=== PATIENT | female | born 1935 | race Caucasian/White ===

== ENCOUNTER 2016-04-28 12:14 | Observation (INO) ==
--- NOTE | 2016-04-28 12:29 | Emergency Department Note ---
Disposition Clinical Impression: Dehydration, Hyperkalemia, Hyperglycemia Disposition: Admitted As Inpatient Condition: Good Referrals: Cindi Geronimo MD [Primary Care Provider] - Forms: Work/School Release, ED Satisfaction Letter Time of Disposition: 16:35 Abdominal Pain HPI - General Chief Complaint: ED Abdominal Pain Stated Complaint: abdominal pain, weakness Time Seen by Provider: 04/28/16 12:25 Source: patient Mode of arrival: EMS Limitations: no limitations Nursing Notes Reviewed: Yes Vital Signs Reviewed: Yes - History of Present Illness HPI Narrative: 6-year-old female resents be a life 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 She states she has felt bad for a little over a week. She states she saw her physician last week who harish some blood. She is not sure what the results were. She states she feels weak primarily in the morning when she gets up until late in the morning. She has had some discomfort in her lower abdomen in the suprapubic area. It radiates to her back. Decreased appetite. No vomiting. No diarrhea. No frequency or urgency. No fever. Pt Subjective Complaint: abdominal pain Onset (ago): week(s) Consistency: constant (1) Location: suprapubic Pain Severity: mild Pain Scale: 1 Quality: cannot describe Radiation: back (Low back) Migration to: no migration Improves with: nothing Worsens with: nothing Associated symptoms: Reports: other (Weakness/fatigue. Worse in the mornings.) Treatments prior to arrival: other (Saw her primary care physician last week.) - Related Data Home Medications Medication Instructions Recorded Confirmed Amlodipine [Norvasc] 5 mg PO BID 04/28/16 04/28/16 Aspirin [Lo-Dose Aspirin EC] 81 mg PO DAILY 04/28/16 04/28/16 Citalopram Hydrobromide 10 mg PO DAILY 04/28/16 04/28/16 [Citalopram HBr] Donepezil [Aricept] 10 mg PO HS 04/28/16 04/28/16 Insulin DETEMIR [Levemir] 15 unit SQ HS 04/28/16 04/28/16 Labetalol HCl 200 mg PO BID 04/28/16 04/28/16 Losartan [Cozaar] 25 mg PO DAILY 04/28/16 04/28/16 Ranitidine HCl [Zantac] 150 mg PO DAILY 04/28/16 04/28/16 Sitagliptin Phosphate [Januvia] 50 mg PO DAILY 04/28/16 04/28/16 Tizanidine HCl [Zanaflex] 2 mg PO TID 04/28/16 04/28/16 Allergies Allergy/AdvReac Type Severity Reaction Status Date / Time methyldopa Allergy See Verified 04/28/16 12:18 Comments acetaminophen [From Tylenol] AdvReac Diarrhea Verified 06/09/15 08:58 propoxyphene AdvReac Diarrhea Verified 06/09/15 08:58 sulfamethoxazole AdvReac Cramping Verified 06/09/15 08:58 [From Bactrim] of the Muscles trimethoprim [From Bactrim] AdvReac Cramping Verified 06/09/15 08:58 of the Muscles All systems ED: reviewed and negative except as stated. Constitutional: Denies: fever, chills Eyes: Denies: eye discharge ENT ED: Denies: ear pain, throat pain Cardiovascular: Denies: chest pain, palpitations Respiratory: Denies: cough, dyspnea Gastrointestinal: Reports: abdominal pain. Denies: nausea, vomiting, diarrhea Genitourinary: Denies: urgency, dysuria, frequency Musculoskeletal: Reports: back pain (Midline lower lumbar) Integumentary: Denies: rash Endocrine: Reports: fatigue Abdominal Pain PMH - Past Medical History Medical history: Reports: coronary artery disease, diabetes, GERD, hypertension , renal disease, TIA - Social History Smoking status: Never smoker Alcohol use: Reports: none Drug use: Reports: none Physical Exam - General Limitations: no limitations General appearance: alert, in no apparent distress - Head Head exam: atraumatic, normocephalic - Eye Eye exam: Present: PERRL, EOMI. Absent: scleral icterus, conjunctival injection - ENT ENT exam: normal oropharynx, mucous membranes moist, TM's normal bilaterally - Neck Neck exam: Present: normal inspection, full ROM, trachea midline. Absent: tenderness, lymphadenopathy - Chest Chest inspection: Present: normal inspection, symmetric chest wall rise - Respiratory Respiratory exam: Present: normal lung sounds bilaterally. Absent: respiratory distress, wheezes - Cardiovascular Cardiovascular exam: Present: regular rate, normal rhythm, normal heart sounds - Abdominal Exam Abdominal exam: Present: soft, tenderness, guarding. Absent: distention, rebound, organomegaly, mass Abdominal tenderness: Present: suprapubic, moderate - Extremities Exam Extremities exam: Present: normal inspection, full ROM, normal capillary refill. Absent: tenderness, calf tenderness - Neurological Exam Neurological exam: Present: alert, oriented X3. Absent: motor sensory deficit - Psychiatric Psychiatric exam: Present: normal affect, depressed - Skin Skin exam: Present: warm, dry, intact. Absent: cyanosis, diaphoresis Course - Reevaluation(s) Reevaluation #1: Discuss test results with the patient and family. Discussed options as far as observation admission versus outpatient treatment. I told them I was concerned about her elevated potassium and weakness, and her legs giving out on her. I felt that it would be prudent to observe her on a monitor and hydrate her and recheck her potassium. They are agreeable. Time: 16:00 Reevaluation #2: Discussed with Dr. Lindsey. He is agreeable with the admission. Time: 16:20 Vital Signs Temperature 99.7 F H 04/28/16 12:19 Pulse Rate 54 04/28/16 12:19 Respiratory Rate 20 04/28/16 12:19 O2 Sat by Pulse Oximetry 100 04/28/16 12:19 Temperature 98.1 F 04/28/16 14:18 Pulse Rate 53 04/28/16 16:00 Respiratory Rate 18 04/28/16 16:00 Blood Pressure 164/77 04/28/16 16:00 O2 Sat by Pulse Oximetry 99 04/28/16 16:00 Oxygen Delivery Oxygen Delivery Room Air Abdominal Pain - MDM Narrative Medical decision making narrative: Differential includes but is not limited to hypothyroidism, hyperglycemia, urinary tract infection, influenza, diverticulitis, appendicitis. On review of old records her BUN and creatinine are running somewhat higher than her baseline. She certainly appears to have some baseline renal insufficiency, I cannot rule out a component of prerenal azotemia. She has had associated mild hyperkalemia. This may explain her generalized weakness and/or fatigue. She states her blood sugars have been running in the 180-200 range. She states she has been drinking a lot of fluids. I think she would benefit from hydration, monitoring and recheck in her potassium, monitoring her blood sugars under better control. The etiology of her abdominal discomfort is not clear at this point in time. Made for further workup. I discussed the case with the hospitalist, Dr. Lindsey, and he accepts the patient for admission. - Medical Records Medical records reviewed: Yes I reviewed the patient's medical records. - Lab Data Lab results reviewed: Yes I reviewed the patient's lab results. Result diagrams: 04/28/16 12:52 04/28/16 12:52 Lab Results 04/28/16 04/28/16 04/28/16 Range/Units 12:52 12:52 12:52 WBC 3.9 L (4.3-11.1) K/mcL RBC 4.28 (3.82-4.97) M/mcL Hgb 11.5 (11.5-15.4) g/dL Hct 33.8 L (35.3-44.9) % MCV 79.0 L (83.0-100.0) fL MCH 26.9 L (28.0-33.3) pg MCHC 34.0 (31.6-35.5) g/dL RDW 13.1 (11.5-14.5) % Plt Count 184 (140-400) K/mcL MPV 10.4 (9.4-12.4) fL Immature Gran % 0.3 (0-4) % Seg Neutrophils % 57.3 % Lymphocytes % 27.0 % Monocytes % 10.0 % Eosinophils % 4.6 % Basophils % 0.8 % Neutrophils # 2.2 (1.6-8.9) K/mcL Lymphocytes # 1.1 (0.6-4.6) K/mcL Monocytes # 0.4 (0.0-1.3) K/mcL Eosinophils # 0.2 (0.0-0.6) K/mcL Basophils # 0.0 (0.0-0.2) K/mcL VBG Lactic Acid (0.5-2.2) mmol/L Sodium 139 (136-145) mEq/L Potassium 5.4 H (3.5-4.5) mEq/L Chloride 111 H (98-109) mEq/L Carbon Dioxide 17 L (19-29) mEq/L BUN 37 H (7-20) mg/dL Creatinine 2.02 H (0.57-1.11) mg/dL Est GFR ( Amer) 29 L (> 60) Est GFR (Non-Af Amer) 24 L (> 60) BUN/Creatinine Ratio 18 (6-26) Glucose 218 H (70-99) mg/dL Calculated Osmolality 303 H (280-300) Calcium 9.7 (8.6-10.8) mg/dL Total Bilirubin 0.4 (0.2-1.2) mg/dL AST 14 (5-34) Units/L ALT 10 (0-55) Units/L Alkaline Phosphatase 64 (38-126) Units/L Troponin I 0.00 (0-0.03) ng/mL Serum Total Protein 6.8 (6.0-8.3) g/dL Albumin 3.7 (3.5-5.0) g/dL Globulin 3.1 (2.4-3.5) g/dL Albumin/Globulin Ratio 1.2 (1.1-2.2) Lipase 84 H (8-78) Units/L Beta-Hydroxybutyric Acd (0.02-0.27) mmol/L TSH (0.350-4.840) mcIU/mL Urine Color (Yellow) Urine Clarity (Clear) Urine pH (5.0-8.0) pH Units Ur Specific [place] (1.010-1.025) Urine Protein (Neg-Trace) mg/dL Urine Glucose (UA) (Normal) mg/dL Urine Ketones (Negative) mg/dL Urine Blood (Negative) Urine Nitrite (Negative) Urine Bilirubin (Negative) Urine Urobilinogen (Normal) mg/dL Ur Leukocyte Esterase (Negative) Urine Microscopic WBC (0-3) per hpf Ur Squamous Epith Cells (None-Few) per lpf Ur Culture Indicated? (NO) 04/28/16 04/28/16 04/28/16 Range/Units 12:52 12:52 13:03 WBC (4.3-11.1) K/mcL RBC (3.82-4.97) M/mcL Hgb (11.5-15.4) g/dL Hct (35.3-44.9) % MCV (83.0-100.0) fL MCH (28.0-33.3) pg MCHC (31.6-35.5) g/dL RDW (11.5-14.5) % Plt Count (140-400) K/mcL MPV (9.4-12.4) fL Immature Gran % (0-4) % Seg Neutrophils % % Lymphocytes % % Monocytes % % Eosinophils % % Basophils % % Neutrophils # (1.6-8.9) K/mcL Lymphocytes # (0.6-4.6) K/mcL Monocytes # (0.0-1.3) K/mcL Eosinophils # (0.0-0.6) K/mcL Basophils # (0.0-0.2) K/mcL VBG Lactic Acid (0.5-2.2) mmol/L Sodium (136-145) mEq/L Potassium (3.5-4.5) mEq/L Chloride (98-109) mEq/L Carbon Dioxide (19-29) mEq/L BUN (7-20) mg/dL Creatinine (0.57-1.11) mg/dL Est GFR ( Amer) (> 60) Est GFR (Non-Af Amer) (> 60) BUN/Creatinine Ratio (6-26) Glucose (70-99) mg/dL Calculated Osmolality (280-300) Calcium (8.6-10.8) mg/dL Total Bilirubin (0.2-1.2) mg/dL AST (5-34) Units/L ALT (0-55) Units/L Alkaline Phosphatase (38-126) Units/L Troponin I (0-0.03) ng/mL Serum Total Protein (6.0-8.3) g/dL Albumin (3.5-5.0) g/dL Globulin (2.4-3.5) g/dL Albumin/Globulin Ratio (1.1-2.2) Lipase (8-78) Units/L Beta-Hydroxybutyric Acd 0.29 H (0.02-0.27) mmol/L TSH 0.646 (0.350-4.840) mcIU/mL Urine Color Yellow (Yellow) Urine Clarity Clear (Clear) Urine pH 6.5 (5.0-8.0) pH Units Ur Specific [place] 1.015 (1.010-1.025) Urine Protein 100 H (Neg-Trace) mg/dL Urine Glucose (UA) 250 H (Normal) mg/dL Urine Ketones Negative (Negative) mg/dL Urine Blood Trace-lysed H (Negative) Urine Nitrite Negative (Negative) Urine Bilirubin Negative (Negative) Urine Urobilinogen Normal (Normal) mg/dL Ur Leukocyte Esterase Negative (Negative) Urine Microscopic WBC 0-3 (0-3) per hpf Ur Squamous Epith Cells Few (None-Few) per lpf Ur Culture Indicated? NO (NO) 04/28/16 Range/Units 14:25 WBC (4.3-11.1) K/mcL RBC (3.82-4.97) M/mcL Hgb (11.5-15.4) g/dL Hct (35.3-44.9) % MCV (83.0-100.0) fL MCH (28.0-33.3) pg MCHC (31.6-35.5) g/dL RDW (11.5-14.5) % Plt Count (140-400) K/mcL MPV (9.4-12.4) fL Immature Gran % (0-4) % Seg Neutrophils % % Lymphocytes % % Monocytes % % Eosinophils % % Basophils % % Neutrophils # (1.6-8.9) K/mcL Lymphocytes # (0.6-4.6) K/mcL Monocytes # (0.0-1.3) K/mcL Eosinophils # (0.0-0.6) K/mcL Basophils # (0.0-0.2) K/mcL VBG Lactic Acid 2.0 (0.5-2.2) mmol/L Sodium (136-145) mEq/L Potassium (3.5-4.5) mEq/L Chloride (98-109) mEq/L Carbon Dioxide (19-29) mEq/L BUN (7-20) mg/dL Creatinine (0.57-1.11) mg/dL Est GFR ( Amer) (> 60) Est GFR (Non-Af Amer) (> 60) BUN/Creatinine Ratio (6-26) Glucose (70-99) mg/dL Calculated Osmolality (280-300) Calcium (8.6-10.8) mg/dL Total Bilirubin (0.2-1.2) mg/dL AST (5-34) Units/L ALT (0-55) Units/L Alkaline Phosphatase (38-126) Units/L Troponin I (0-0.03) ng/mL Serum Total Protein (6.0-8.3) g/dL Albumin (3.5-5.0) g/dL Globulin (2.4-3.5) g/dL Albumin/Globulin Ratio (1.1-2.2) Lipase (8-78) Units/L Beta-Hydroxybutyric Acd (0.02-0.27) mmol/L TSH (0.350-4.840) mcIU/mL Urine Color (Yellow) Urine Clarity (Clear) Urine pH (5.0-8.0) pH Units Ur Specific [place] (1.010-1.025) Urine Protein (Neg-Trace) mg/dL Urine Glucose (UA) (Normal) mg/dL Urine Ketones (Negative) mg/dL Urine Blood (Negative) Urine Nitrite (Negative) Urine Bilirubin (Negative) Urine Urobilinogen (Normal) mg/dL Ur Leukocyte Esterase (Negative) Urine Microscopic WBC (0-3) per hpf Ur Squamous Epith Cells (None-Few) per lpf Ur Culture Indicated? (NO) - Radiology Data Radiology results reviewed: Yes I reviewed the patient's radiology results. ITS Impressions Abdomen/Pelvis CT 04/28/16 12:26 IMPRESSION: Limited noncontrast study showing no acute abnormality. D/ / Quyen Paredes Cha, MD / Quyen Paredes Cha, MD Interpreting Provider: Quyen Paredes Cha, MD Chest X-Ray 04/28/16 12:26 IMPRESSION: No acute process. D/ / Jigar Harry MD / Jigar Harry MD Interpreting Provider: Jigar Harry MD - EKG Data EKG attestation: Yes I reviewed and interpreted this EKG. EKG results narrative: Sinus bradycardia rate of 46, no acute ST-T wave changes. Rhythm shows sinus bradycardia with a rate of 46, DE interval 161 ms, QRS 77 ms with no other ectopy as interpreted by me.
[2016-04-28 13:02] LABS: Basophils % 0.8 %; Eosinophils # 0.2 K/mcL (0.0-0.6); Eosinophils % 4.6 %; Hematocrit 33.8 % (35.3-44.9); Hemoglobin 11.5 g/dL (11.5-15.4); Immature Granulocytes % 0.3 % (0-4); Lymphocytes # 1.1 K/mcL (0.6-4.6); Mean Corpuscular Hemoglobin 26.9 pg (28.0-33.3); Mean Platelet Volume 10.4 fL (9.4-12.4); Monocytes # 0.4 K/mcL (0.0-1.3); Neutrophils # 2.2 K/mcL (1.6-8.9); Platelet Count 184 K/mcL (140-400); Red Blood Count 4.28 M/mcL (3.82-4.97); Red Cell Distribution Width 13.1 % (11.5-14.5); Segmented Neutrophils % 57.3 %
[2016-04-28 13:07] LABS: Bilirubin,Urine Negative (Negative); Blood,Urine Trace-lysed (Negative); Clarity,Urine Clear (Clear); Color,Urine Yellow (Yellow); Glucose,Urine (UA) 250 mg/dL (Normal); Ketones,Urine Negative (Negative); Leukocyte Esterase,Urine Negative (Negative); Nitrite,Urine Negative (Negative); PH,Urine 6.5 pH Units (5.0-8.0); Protein,Urine 100 mg/dL (Neg-Trace); Specific Gravity,Urine 1.015 (1.010-1.025); Urobilinogen,Urine Normal (Normal)
[2016-04-28 13:23] LABS: Albumin 3.7 g/dL (3.5-5.0); Albumin/Globulin Ratio 1.2 (1.1-2.2); Bilirubin,Total 0.4 mg/dL (0.2-1.2); Calcium 9.7 mg/dL (8.6-10.8); Globulin 3.1 g/dL (2.4-3.5); Potassium 5.4 mEq/L (3.5-4.5); Total Protein 6.8 g/dL (6.0-8.3)
[2016-04-28 13:53] LABS: Squamous Epithelial Cell,Urine Few per lpf (None-Few); WBC,Urine 0-3 per hpf (0-3)
[2016-04-28] MEDS ORDERED: 0.9 % Sodium Chloride 1,000 ML IVC ONE (13:58)
[2016-04-28] MEDS ORDERED: Ondansetron 4 MG/2 ML VIAL IVP ONE (16:57)
[2016-04-28] MEDS ORDERED: *HR* Morphine 2 MG/ML SYRINGE IVP ONE (16:57)
[2016-04-28] MEDS ORDERED: Naloxone 0.4 MG/ML INJ IVP PRN (17:54)
[2016-04-28] MEDS ORDERED: NON-FORMULARY MEDICATION 1 EACH EACH (Insulin Detemir 15 UNIT) SQ SCH (21:00)
[2016-04-28] MEDS ORDERED: Insulin DETEMIR 100 UNIT/ML per UNIT SQ ONE (21:00)
[2016-04-28] MEDS: 0.9 % Sodium Chloride 1,000 ML IVC SCH (23:02)
[2016-04-28] MEDS: *HR* HYDROcodone/Acet 5/325 mg TABLET PO PRN (23:12)
[2016-04-28] MEDS: MOM Conc 10 ML UD.LIQ PO PRN (23:13)
[2016-04-29] MEDS: Ondansetron 4 MG/2 ML VIAL IVP SCH ×5 (00:32→21:48)
[2016-04-29] MEDS: 0.9 % Sodium Chloride 1,000 ML IVC SCH (05:08)
[2016-04-29 06:36] LABS: INR 1.1; Prothrombin Time 12.2 Seconds (9.4-12.1)
[2016-04-29 06:41] LABS: Calcium 8.6 mg/dL (8.6-10.8); Potassium 4.9 mEq/L (3.5-4.5)
[2016-04-29] MEDS ORDERED: NON-FORMULARY MEDICATION 1 EACH EACH (Ranitidine Hcl [Zantac] 150 MG) PO SCH (09:00)
[2016-04-29] MEDS ORDERED: *HR* SitaGLIPtin 25 MG TABLET PO SCH (09:00)
[2016-04-29] MEDS: Aspirin Enteric Coated 81 MG Tablet PO SCH (09:08)
[2016-04-29] MEDS: Famotidine 20 MG TABLET PO SCH (09:08)
[2016-04-29] MEDS: MOM Conc 10 ML UD.LIQ PO PRN (13:41)
--- NOTE | 2016-04-29 15:36 | Internal Med History&Physical ---
Date of Encounter: 04/29/16 Time of Encounter: 14:35 Assessment and Plan (1) Syncope Current visit: Yes Status: Acute Suspect cardiogenic rather than neurogenic etiology. She will have echocardiogram and carotid Doppler studies done. Further workup will be ordered as needed. Qualifiers: Syncope type: unspecified Qualified Code(s): R55 - Syncope and collapse (2) Microcytosis Current visit: Yes Status: Acute Iron studies done 01/20/2016 were unremarkable. (3) DM type 2 (diabetes mellitus, type 2) Current visit: Yes Status: Chronic Hemoglobin A1c was 8.6% on 04/06/2016. She does not use Levemir although it is listed on her home medications. She does use Januvia. Will do Accu-Cheks with SSI. 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 We will do room air oximetry before discharge. (5) CKD (chronic kidney disease) stage 4, GFR 15-29 ml/min Current visit: Yes Status: Acute We will hold Cozaar and give IV fluids and monitor renal indices. (6) Elevated antinuclear antibody (CHLOE) level Current visit: Yes Status: Acute Her CHLOE screen was positive at a 1:640 dilution on 02/21/2016. Will order additional workup for SLE Internal Medicine - H&P: HPI Chief complaint: Syncope, weight loss, dyspnea Admitted From: Home Plans for Post Hospital Care: Home History of present illness: Ms. Middleton is a 81 year old female who came to the emergency room after experiencing a syncopal episode at home. She was standing at the sink and suddenly became unable to bear weight. Her daughter was standing beside her and was able to hold her until a chair could be brought. She was placed in the chair but had markedly decreased body tone, decreased LOC, and slurred speech. Her daughter felt her heart was beating rapid and irregular. After several minutes she improved and was brought to emergency room. She was evaluated and admitted to [facility] for ongoing care needs. She has not had previous syncopal episode but has had numerous episodes of near syncope over the past few weeks. She describes these as sensation of feeling weak and occasional true vertigo. She denies chest pain or sensation of palpitations. She has had headache almost daily for the last 6 weeks. Headaches last approximately 20 minutes and sometimes recur in the course of the day. She has seen Dr. Davis at [facility] and CT and MRI studies of the head have shown no significant pathology. The specific diagnosis of the etiology of the headaches has been made. The patient was concerned she might have dementia and was started on Aricept although no definitive diagnosis was made. She denies large distribution strokes or seizures. Past Med Surg Social Fam HX - Past Medical History Medical history: coronary artery disease, diabetes, GERD, hypertension, renal disease, TIA Psychiatric history: anxiety - Past Surgical History Surgical History: hysterectomy, knee replacement - Social History Smoking Status: Never smoker Smokeless Tobacco Status: No Alcohol use: none Drug use: none - Family History Mother Living Status: Age at : 80 Cause of : PA Hx Family Cardiac Disorders: Yes Hx Family Cancer: Yes Hx Family Endocrine Disorder: Yes (diabetes) Internal Medicine - H&P: Meds Amlodipine [Norvasc] 5 mg PO BID 04/28/16 [History] Aspirin [Lo-Dose Aspirin EC] 81 mg PO DAILY 04/28/16 [History] Citalopram Hydrobromide [Citalopram HBr] 10 mg PO DAILY 04/28/16 [History] Donepezil [Aricept] 10 mg PO HS 04/28/16 [History] Insulin DETEMIR [Levemir] 15 unit SQ HS 04/28/16 [History] Labetalol HCl 200 mg PO BID 04/28/16 [History] Losartan [Cozaar] 25 mg PO DAILY 04/28/16 [History] Ranitidine HCl [Zantac] 150 mg PO DAILY 04/28/16 [History] Sitagliptin Phosphate [Januvia] 50 mg PO DAILY 04/28/16 [History] Tizanidine HCl [Zanaflex] 2 mg PO TID 04/28/16 [History] Allergies methyldopa Allergy (Verified 04/28/16 12:18) See Comments acetaminophen [From Tylenol] Adverse Reaction (Verified 06/09/15 08:58) Diarrhea propoxyphene Adverse Reaction (Verified 06/09/15 08:58) Diarrhea sulfamethoxazole [From Bactrim] Adverse Reaction (Verified 06/09/15 08:58) Cramping of the Muscles trimethoprim [From Bactrim] Adverse Reaction (Verified 06/09/15 08:58) Cramping of the Muscles All Systems PM: A 10-system review of systems was performed and is negative for pertinent findings except as documented above in the HPI. Review of systems: Gen.: Her weight has decreased at least 35 pounds in the past year, unintentional. She reports this is due to poor appetite and decreased food intake Cardiovascular: She has history of hypertension. She does not check her blood pressures at home. She denies heart failure angina DVT or pulmonary embolus. She does get dyspneic on exertion but does not have chest pain on exertion. She does not have a sensation of cardiac ectopy. She was told she might have had a mild heart attack 4 years ago but no heart catheter or stress test has been done Respiratory: She is a lifelong nonsmoker and has no known chronic lung disease GI: She denies disorders of her liver gallbladder or exocrine pancreas. She has occasional constipation : She has chronic kidney disease stage IV and follows with a [place] celery tier. She denies other kidney or bladder disorders. Neurologic: As per history of present illness Endocrine: She was diagnosed with DM 2 more than 10 years ago. Hemoglobin A1c was 8.6% on 04/06/2016. She has history of hyperlipidemia with lipid profile done 11/30/2013 showing cholesterol 243, triglycerides 185, HDL 46, and total/ HDL ratio 5.3. She denies known thyroid disease. Hematologic/oncology: She denies blood disorders cancers or anemia. She was unaware she had chronic microcytosis Psychiatric: She has anxiety but no significant depression or other mental health issues Musculoskeletal: She had a lipoma removed from her left leg approximately four years ago. She has been diagnosed with Raynaud's disease. She claims she has arthritis pains in her hands. - Constitutional Vitals: Temp Pulse Resp BP Pulse Ox 98.3 F 60 16 120/54 96 04/29/16 11:00 04/29/16 11:00 04/29/16 11:00 04/29/16 11:00 04/29/16 11:00 Exam: Gen.: She is a well-developed well-nourished female who appears in no severe distress at present time. HEENT: Head is atraumatic and normocephalic. Eyes: EOMI. There is no scleral icterus. Mouth: Mucosa is moist. Neck: Supple and nontender. There is no thyromegaly or adenopathy noted. Heart: Regular without murmurs gallops or ectopics. Lungs: No wheezes or crackles are heard. Abdomen: Soft. There is a well-healed lower midline abdominal scar. There is mild tenderness to palpation lower quadrants bilaterally. No masses or guarding are noted. Extremities: There is no cyanosis edema or clubbing noted. Dorsalis pedis and posttibial pulses are 1-2 over 2 bilaterally. Neurologic: Mental status: She is talkative and seems to be a reliable historian. Cranial nerves: Smile is symmetric. Forehead wrinkles bilaterally. Tongue protrudes midline. EOMI. Motor: There is no pronator drift. Ankle flexion and extension strength against resistance is normal. Cerebellar: Finger to nose is intact bilaterally. Skin: Warm and dry Internal Med - H&P Results - Labs CBC & Chem 7: 04/28/16 12:52 04/29/16 05:25 Labs: BMP 04/29/16 05:25 Sodium 143 Potassium 4.9 H Chloride 116 H Carbon Dioxide 16 L BUN 30 H Creatinine 1.85 H Glucose 169 H Calcium 8.6
[2016-04-29] MEDS: *HR* HYDROcodone/Acet 5/325 mg TABLET PO PRN ×2 (15:50→22:47)
[2016-04-29] MEDS ORDERED: Sennosides/Docusate Sodium TABLET PO STA (18:17)
--- NOTE | 2016-04-29 18:37 | Electrocardiograph Report ---
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
[2016-04-29] MEDS: Insulin DETEMIR 100 UNIT/ML X5UNITS SQ SCH (21:47)
[2016-04-30] MEDS: Ondansetron 4 MG/2 ML VIAL IVP SCH ×4 (00:06→08:07)
[2016-04-30] MEDS: 0.9 % Sodium Chloride 1,000 ML IVC SCH ×3 (08:06→16:02)
[2016-04-30] MEDS: *HR* HYDROcodone/Acet 5/325 mg TABLET PO PRN (08:08)
[2016-04-30] MEDS: Aspirin Enteric Coated 81 MG Tablet PO SCH (08:10)
[2016-04-30] MEDS: *HR* SitaGLIPtin 25 MG TABLET PO SCH ×2 (08:11→08:14)
[2016-04-30] MEDS: Famotidine 20 MG TABLET PO SCH (08:11)
[2016-04-30] MEDS ORDERED: Ondansetron 4 MG/2 ML VIAL IVP PRN (11:13)
--- NOTE | 2016-04-30 11:23 | Internal Med Progress Note ---
Date of Encounter: 04/30/16 Time of Encounter: 11:05 - Assessment and plan (1) Syncope Current Visit: Yes Status: Acute Assessment and plan: April 30. Continue telemetry monitoring. Await echocardiogram and carotid Doppler studies. Qualifiers: Syncope type: unspecified Qualified Code(s): R55 - Syncope and collapse (2) Microcytosis Current Visit: Yes Status: Acute Assessment and plan: April 30. Iron studies 01/20/2016 were unremarkable (3) DM type 2 (diabetes mellitus, type 2) Current Visit: Yes Status: Chronic Assessment and plan: April 30. Continue Januvia and Accu-Cheks with SSI. Hemoglobin A1c was 8.6 % on 04/06/2016. Qualifiers: Diabetes mellitus complication status: with kidney complications Diabetes mellitus complication detail: with chronic kidney disease Diabetes mellitus skilled nursing insulin use: without skilled nursing use Chronic kidney disease stage: stage 4 (severe) Qualified Code(s): E11.22 - Type 2 diabetes mellitus with diabetic chronic kidney disease; N18.4 - Chronic kidney disease, stage 4 (severe ) (4) Dyspnea on exertion Current Visit: Yes Status: Chronic Assessment and plan: April 30. Chest CT was unremarkable. Echocardiogram report is pending. We will order room air oximetry in a.m. Anticipate discharge tomorrow (5) CKD (chronic kidney disease) stage 4, GFR 15-29 ml/min Current Visit: Yes Status: Acute Assessment and plan: April 30. Hold Cozaar and continue IV fluids. Recheck labs in a.m. (6) Elevated antinuclear antibody (CHLOE) level Current Visit: Yes Status: Acute Assessment and plan: April 30. Additional labs for SLE workup pending - Subjective Interval history: April 30. She has no new complaints and feels better overall. - Constitutional Vitals: Temp Pulse Resp BP Pulse Ox 97.8 F 58 97 168/58 96 04/30/16 07:46 04/30/16 10:11 04/30/16 10:11 04/30/16 10:11 04/30/16 10:11 Exam: Affect was bright and cheerful. She was in no acute distress. She was able to ambulate in the hallway with therapist. I reviewed her medications and lab results. Echocardiogram and carotid Doppler studies were done this morning with reports pending Internal Medicine: Result - Labs CBC & Chem 7: 04/28/16 12:52 04/29/16 05:25 - ABG Interpretation ABG results: PT/INR, D-dimer PT 12.2 Seconds (9.4-12.1) H 04/29/16 05:25 - Impressions Impressions Chest CT 04/29/16 15:17 IMPRESSION: No suspicious pulmonary nodules or masses identified. There is a tiny right-sided pleural effusion D/ / Dorian Mary MD / Dorian Mary MD Interpreting Provider: Dorian Mary MD Consult Discharge Plan - Plan Referrals: Cindi Geronimo MD [Primary Care Provider] - 1 week
--- NOTE | 2016-04-30 11:42 | ECHO - Doppler Report ---
Echocardiogram Name: Sabiha Middleton Date of Study: 04/30/2016 Date: 1935 Ht: 68.0 in Medical Record#: [id number] Age: 81 Wt: 203.0 lb Gender: Female BSA: 2.06 Order #: [id number] Location: [facility] Room #: 42 Reading Physician: Brandon Price DO, EBER, SOPHIE BUITRAGO Air Brush Operator: Dennis Pearson RDCS Ordering Physician: Cecil Lindsey MD Primary Physician: None Indications: Syncope Impressions: LVEF 65-70%. Normal LV chamber size and function. Mild concentric left ventricular hypertrophy, which is mildly more prominent in the basal septum. Mild left ventricular diastolic dysfunction. Normal right ventricular structure and function. Calcified aortic valve leaflets, especially the non and left coronary cusps. Mild aortic stenosis. Mean gradient 12 mmHg. Mild tricuspid regurgitation. Severe pulmonary hypertension. Estimated RVSP is 54 mmHg. Left Ventricular Wall Motion: Rest Echo Findings All wall segments showed normal motion. Findings: Study Quality * Technically adequate exam. ECG Findings * Sinus bradycardia. Left Ventricle * LVEF 65-70%. * Normal LV chamber size and function. * Mild concentric left ventricular hypertrophy, which is mildly more prominent in the basal septum. * Mild left ventricular diastolic dysfunction. Right Ventricle * Normal right ventricular structure and function. Left Atrium * Moderately dilated left atrium. Right Atrium * Normal right atrial size. Interatrial Septum * Interatrial septum not well evaluated. Aortic Valve * Trileaflet aortic valve. * Mildly calcified aortic valve leaflets, especially the non and left coronary cusps. * Trace aortic regurgitation. * Mild aortic stenosis. Mean gradient 12 mmHg. Mitral Valve * Normal mitral valve structure and function. * Trace mitral regurgitation. * No mitral stenosis. Tricuspid Valve * Normal tricuspid valve structure. * Mild tricuspid regurgitation. * Severe pulmonary hypertension. * Estimated RVSP is 54 mmHg. * Estimated RA pressure is 5 mmHg. Pulmonic Valve * Normal pulmonic valve structure. * Mild pulmonic regurgitation. Aorta * Normally sized aortic root. Pericardium * There is a trivial pericardial effusion present. IVC * Normal IVC dimensions and inspiratory collapse. Pulmonary Artery * Normal visualized portions of the main pulmonary artery. History Hypertension Diabetes Hypercholesteremia 12/12/13 a Previous Echo was performed. Measurements: BP: 168/ 58 2D Normal Values RVIDd: 3.80 cm <2.7 cm IVSd: 1.50 cm 0.6 - 1.0 cm LVIDd: 3.90 cm 3.7 - 5.6 cm LVPWd: 1.40 cm 0.6 - 1.1 cm LVIDs: 2.60 cm 1.5 - 3.6 cm AO: 2.80 cm < 4.0 cm LA: 4.20 cm 2.0 - 4.0cm %FS: 33.00 cm >25 % LVOT Diam: 2.00 cm LA volume: 97.1 Mitral Valve Peak E:1.10 m/sec Peak A:1.23 m/sec E/A Ratio:0.9 Peak E' Lat Gonzalo:5.75 cm/s Peak E' Med Gonzalo:6.82 cm/s E/E' Lat Ratio:19.1 E/E' Med Ratio:16.1 LVOT Peak Gonzalo:1.16 m/sec Mean Gonzalo:.78 m/sec Peak Grad:5.00 mmHg Mean Grad:3.00 mmHg Aortic Valve Peak Gonzalo:2.25 m/sec Mean Gonzalo:1.61 m/sec Peak Grad:20.00 mmHg Mean Grad:12.00 mmHg Valve Area:1.45 cm2 Tricuspid Valve TV Regurg Peak Grad: 49.00mmHg TV Regurg Peak Gonzalo: 3.50m/sec Updated by Brandon Price DO, FACRayshawn, IFTIKHAR, SOPHIE on 04/30/2016 11:34:59 AM electronically signed on 04/30/2016 11:35:24 AM with status of Final Wall Motion Gonzalez: 1=Normal, 2=Hypokinesis, 3=Akinesis, 4=Dyskinesis, 5=Aneurysmal, 6=Hyperkinetic, X=Not Visualized (Blank)=Missing
[2016-04-30] MEDS ORDERED: Dextrose Gel 15 GM PO PRN ×2 (11:46)
[2016-04-30] MEDS ORDERED: *HR* Dextrose 50 % in Water (Syg) 50 ML SYRINGE IVP PRN (11:46)
[2016-04-30] MEDS ORDERED: D5% in Water 1,000 ML IV PRN (11:46)
[2016-04-30] MEDS: Insulin LISPRO 300 UNITS/3 ML VIAL SQ SCH (16:01)
--- NOTE | 2016-04-30 19:08 | Carotid Imaging Report ---
Carotid Duplex Patient Name:Sabiha Middleton Order Number:[id number] Procedure Date:04/30/2016 Date:1935ge:81 yrs Gender:Female Location:[place] Room #: Pathologist Assistant:Dennis Pearson MARTHA Referring MD:Cecil Lindsey MD outreach coordinator:None Reading MD:Bandar Muñoz MD , FACS Primary Indications:Occlusion and stenosis of carotid artery without mention of cerebral infarction Risk Factors Yes/No None Impressions: Findings: Bilateral carotid system are essentially normal. Findings Carotid Duplex: Right: The right proximal common carotid artery has a PSV of 71 cm/s and a EDV of 13 cm/s. The right mid common carotid artery has a PSV of 72 cm/s and a EDV of 13 cm/s. The right distal common carotid artery has a PSV of 79 cm/s and a EDV of 12 cm/s. The right bifurcation has a PSV of 88 cm/s and a EDV of 13 cm/s. There is smooth heterogeneous plaque. The right proximal internal carotid artery has a PSV of 133 cm/s and a EDV of 16 cm/s. The right mid internal carotid artery has a PSV of 97 cm/s and a EDV of 14 cm/s. The right distal internal carotid artery has a PSV of 82 cm/s and a EDV of 17 cm/s. The right eca has a PSV of 125 cm/s and a EDV of 12 cm/s. The right vertebral artery has a PSV of 64 cm/s and a EDV of 12 cm/s. Left: The left proximal common carotid artery has a PSV of 127 cm/s and a EDV of 16 cm/s. The left mid common carotid artery has a PSV of 94 cm/s and a EDV of 18 cm/s. The left distal common carotid artery has a PSV of 79 cm/s and a EDV of 12 cm/s. The left bifurcation has a PSV of 79 cm/s and a EDV of 12 cm/s. There is smooth heterogeneous plaque. The left proximal internal carotid artery has a PSV of 98 cm/s and a EDV of 16 cm/s. The left mid internal carotid artery has a PSV of 73 cm/s and a EDV of 18 cm/s. The left distal internal carotid artery has a PSV of 90 cm/s and a EDV of 16 cm/s. The left eca has a PSV of 96 cm/s and a EDV of 9 cm/s. The left vertebral artery has a PSV of 82 cm/s and a EDV of 18 cm/s. Carotid Results Right PSV EDV Assessment Proximal CCA 71 13 Normal Mid CCA 72 13 Normal Distal CCA 79 12 Normal Bifurcation 88 13 Non Stenotic Plaque Proximal ICA 133 16 Normal Mid ICA 97 14 Normal Distal ICA 82 17 Normal ECA 125 12 Normal Vertebral Artery 64 12 Normal Left PSV EDV Assessment Proximal CCA 127 16 Normal Mid CCA 94 18 Normal Distal CCA 79 12 Normal Bifurcation 79 12 Non Stenotic Plaque Proximal ICA 98 16 Normal Mid ICA 73 18 Normal Distal ICA 90 16 Normal ECA 96 9 Normal Vertebral Artery 82 18 Normal Ratio's Right ICA/CCA Ratio: 1.80 ICA/CCA Values: 133/72 Left ICA/CCA Ratio: 1.04 ICA/CCA Values: 98/94 Updated by Bandar Muñoz MD, FACS on 04/30/2016 7:03:24 PM Bandar Muñoz MD electronically signed on 04/30/2016 7:04:43 PM with status of Final
[2016-04-30] MEDS ORDERED: Insulin LISPRO 300 UNITS/3 ML VIAL SQ SCH (21:00)
[2016-05-01] MEDS: Insulin DETEMIR 100 UNIT/ML X5UNITS SQ SCH (00:13)
[2016-05-01] MEDS: Insulin LISPRO 300 UNITS/3 ML VIAL SQ SCH ×2 (03:23→08:20)
[2016-05-01 05:53] LABS: Basophils % 0.9 %; Eosinophils # 0.2 K/mcL (0.0-0.6); Eosinophils % 5.4 %; Hematocrit 31.6 % (35.3-44.9); Hemoglobin 10.2 g/dL (11.5-15.4); Immature Granulocytes % 0.4 % (0-4); Lymphocytes % 23.3 %; Mean Corpuscular HGB Conc 32.3 g/dL (31.6-35.5); Mean Corpuscular Hemoglobin 26.3 pg (28.0-33.3); Mean Corpuscular Volume 81.4 fL (83.0-100.0); Mean Platelet Volume 10.8 fL (9.4-12.4); Monocytes # 0.5 K/mcL (0.0-1.3); Monocytes % 10.1 %; Neutrophils # 2.7 K/mcL (1.6-8.9); Platelet Count 146 K/mcL (140-400); Red Blood Count 3.88 M/mcL (3.82-4.97); Red Cell Distribution Width 12.9 % (11.5-14.5); Segmented Neutrophils % 59.9 %
[2016-05-01 06:02] LABS: Potassium 4.9 mEq/L (3.5-4.5)
[2016-05-01 06:17] VITALS: BP 186/73
--- NOTE | 2016-05-01 08:03 | Discharge Summary ---
Date of Encounter: 05/01/16 Time of Encounter: 07:50 - Discharge Diagnosis (1) Syncope Priority: Primary Status: Acute Qualifiers: Syncope type: unspecified Qualified Code(s): R55 - Syncope and collapse (2) Microcytosis Priority: Secondary Status: Chronic (3) DM type 2 (diabetes mellitus, type 2) Priority: Secondary Status: Chronic Qualifiers: Diabetes mellitus complication status: with kidney complications Diabetes mellitus complication detail: with chronic kidney disease Diabetes mellitus alf insulin use: without alf use Chronic kidney disease stage: stage 4 (severe) Qualified Code(s): E11.22 - Type 2 diabetes mellitus with diabetic chronic kidney disease; N18.4 - Chronic kidney disease, stage 4 (severe ) (4) Dyspnea on exertion Priority: Secondary Status: Chronic (5) CKD (chronic kidney disease) stage 4, GFR 15-29 ml/min Priority: Secondary Status: Chronic (6) Elevated antinuclear antibody (CHLOE) level Priority: Secondary Status: Chronic - Discharge Medications Prescriptions: Isosorbide MONOnitrate (24 HR) [Imdur] 30 mg PO DAILY #30 tab.er.24h Home Medications: Amlodipine [Norvasc] 5 mg PO BID 04/28/16 [History] Aspirin [Lo-Dose Aspirin EC] 81 mg PO DAILY 04/28/16 [History] Citalopram Hydrobromide [Citalopram HBr] 10 mg PO DAILY 04/28/16 [History] Donepezil [Aricept] 10 mg PO HS 04/28/16 [History] Labetalol HCl 200 mg PO BID 04/28/16 [History] Ranitidine HCl [Zantac] 150 mg PO DAILY 04/28/16 [History] Sitagliptin Phosphate [Januvia] 50 mg PO DAILY 04/28/16 [History] Tizanidine HCl [Zanaflex] 2 mg PO TID 04/28/16 [History] Isosorbide MONOnitrate (24 HR) [Imdur] 30 mg PO DAILY #30 tab.er.24h 05/01/16 [ Rx] Allergies/Adverse Reactions: Allergies methyldopa Allergy (Verified 04/28/16 12:18) See Comments acetaminophen [From Tylenol] Adverse Reaction (Verified 06/09/15 08:58) Diarrhea propoxyphene Adverse Reaction (Verified 06/09/15 08:58) Diarrhea sulfamethoxazole [From Bactrim] Adverse Reaction (Verified 06/09/15 08:58) Cramping of the Muscles trimethoprim [From Bactrim] Adverse Reaction (Verified 06/09/15 08:58) Cramping of the Muscles Procedures/tests Complete & Pending: Procedures Performed prior 72 hours Category Date Time Status CT chest wo con [CT] Routine Cat Scan 04/29/16 15:17 Completed EV carotid duplex imaging BI Routine Y 04/29/16 15:12 Completed EV echocardiogram Routine Y 04/29/16 15:12 Completed Date of admission: 04/28/16 17:04 Primary care physician: Cindi Geronimo Consults: 04/29/16 15:15 Consult to Occupational Therapy [CONS] Routine Comment: Evaluate, develop and implement POC Consult to Physical Therapy [CONS] Routine Comment: Evaluate, develop and implement POC - Patient Status Disposition: Home, Self-Care Condition: Good Overall status at discharge: patient is progressing back to baseline - Discharge Instructions Follow Up With: Cindi Geronimo MD [Primary Care Provider] - 1 week - Diet and Activity Activity: resume usual activities as tolerated Diet: advance to your usual diet Hospital course: Ms. Middleton is a 81 year old female who came to the emergency room after experiencing a syncopal episode at home. She was standing at the sink and suddenly became unable to bear weight. Her daughter was standing beside her and was able to hold her until a chair could be brought. She was placed in the chair but had markedly decreased body tone, decreased LOC, and slurred speech. Her daughter felt her heart was beating rapid and irregular. After several minutes she improved and was brought to emergency room. She was evaluated and admitted to [facility] for ongoing care needs. She has not had previous syncopal episode but has had numerous episodes of near syncope over the past few weeks. She describes these as sensation of feeling weak and occasional true vertigo. She denies chest pain or sensation of palpitations. She has had headache almost daily for the last 6 weeks. Headaches last approximately 20 minutes and sometimes recur in the course of the day. She has seen Dr. Davis at [facility] and CT and MRI studies of the head have shown no significant pathology. The specific diagnosis of the etiology of the headaches has not been made. The patient was concerned she might have dementia and was started on Aricept although no definitive diagnosis was made. Initial orders were written by the emergency room physician. I saw her on April 29 and performed a history and physical. She was placed on telemetry. She had no further syncopal or retirement episodes. The etiology of the syncopal episode at home was not determined with certainty. Chest CT showed no significant pulmonary nodules or masses. Echocardiogram showed LVEF of 65-70%. There was mild concentric LVH with interventricular septum and posterior wall thickness measurements increased at 1.50 and 1.40 cm respectively. There was left atrial enlargement 4.2 cm. There was elevated RVSP estimate at 54 mmHg. Carotid Doppler studies showed no hemodynamically significant stenosis present. Cozaar was discontinued and IV fluids were given. Her azotemia improved with creatinine decreasing to 1.52 and estimated GFR rising to 33 on the day of discharge. She will remain off Cozaar discharge. Potassium improved to 4.9. Bn- peptide was 396. She will be started on Imdur. Additional labs to further evaluate her previously documented CHLOE were ordered. All these results are pending at time of this dictation. Room air oximetry at rest showed saturations of 95-98%. She will have a 6 minute walk prior to discharge. On May 01 she felt improved and stable for discharge home. She did not complain of a headache. She been able to ambulate satisfactory in the hallway. Will follow with Dr. Geronimo in 3 days as scheduled. - Time Spent with Patient Total time spent providing and/or coordinating discharge services: - Constitutional Vitals: Temp Pulse Resp BP Pulse Ox 97.9 F 65 16 186/73 98 05/01/16 06:12 05/01/16 06:12 05/01/16 06:12 05/01/16 06:12 05/01/16 06:12
[2016-05-01] MEDS: Aspirin Enteric Coated 81 MG Tablet PO SCH (08:15)
[2016-05-01] MEDS: Famotidine 20 MG TABLET PO SCH (08:15)
[2016-05-01] MEDS: *HR* SitaGLIPtin 25 MG TABLET PO SCH (08:17)
[2016-05-03 07:25] LABS: Ribonucleic Protein Antibody 0 AU/mL (0-40); SSA 52 (Anti-RO) Antibody 2 AU/mL (0-40); SSA 60 (Anti-RO) Antibody 0 AU/mL (0-40)
[2016-05-04 07:09] LABS: Antiphospholipid IgG High Spec 3 GPL (0-14); Antiphospholipid IgM High Spec 3 MPL (0-14)
== END 2016-05-01 10:35 | disposition home or self-care (01) ==
LOC: INPPIK 12:14 → EMEROOPIK 12:14 → INPPIK 17:18
PROVIDERS: ADMIT Emergency Medicine; ATTEND Internal Medicine

== ENCOUNTER 2017-11-13 16:40 | Observation (INO) ==
--- NOTE | 2017-11-13 16:49 | Emergency Department Note ---
Disposition Clinical Impression: Weakness generalized, Hyperglycemia, Renal insufficiency Disposition: Admitted As Inpatient Condition: Fair Referrals: Cindi Geronimo MD [Primary Care Provider] - Forms: ED Satisfaction Letter Time of Disposition: 18:09 Weakness HPI - General Chief complaint: ED General Medical Stated complaint: Generalized weakness, Pain, Vomiting Time Seen by Provider: 11/13/17 16:52 Source: patient, family Mode of arrival: private vehicle Limitations: age Nursing Notes Reviewed: Yes Vital Signs Reviewed: Yes - History of Present Illness HPI Narrative: Patient has been brought in by family. She has had increased lassitude, weakness and decreased sleep for 2-3 days. She is been feeling dizzy with standing his had a couple near syncopal episodes. She reports generalized weakness without focal complaint other than she has had decreased vision in her right eye for over 2 weeks. She does have an appointment with her eye doctor, but it is not for about a month. Patient states that she "feels like I am in the outer space". She is unable to articulate any other specific complaint. Her family does volunteer that she has dementia. She has been complaining of some pain in her low thoracic region and flanks for couple days. Indicates she has had similar difficulties for more than a year but it has been worse for 3-4 days. She has not had a change of activity or any fall or injury. She has had about 3 episodes of vomiting today associated with some abdominal pain or cramping. Her emesis has been without blood or mucus. She does have history of chronic kidney disease and has been having a feeling of urgency and frequency of urination and has just been "trickling". She has had history of urinary tract infections. She denies fevers, chills or any current abdominal pain. She denies diarrhea and has occasional constipation for which she takes stool softeners and MiraLAX. She denies any chest pain, palpitation, cough or shortness of breath. She denies any ill exposures or food borne illness concerns. She has had a headache. They note that her blood pressure and temperature have been normal. The family reports that she has been taking her normal medications. Pt Subjective Complaint: generalized weakness/fatigue Onset (ago): day(s) Duration: gradually worsening Location: generalized Migration: none Pain Severity: mild, moderate If pain, quality: aching, dull Improves with: none Worsens with: other (Motion) Associated symptoms: Reports: dysuria, headaches, loss of appetite, nausea/ vomiting, syncope (Near syncopal). Denies: chest pain, confusion, dark stools, diaphoresis, easy bruising, fever/chills, myalgias, rash, shortness of breath - Related Data Home Medications Medication Instructions Recorded Confirmed Aspirin [Lo-Dose Aspirin EC] 81 mg PO DAILY 04/28/16 11/13/17 Donepezil [Aricept] 10 mg PO HS 04/28/16 11/13/17 Labetalol HCl 100 mg PO BID 04/28/16 11/13/17 amLODIPine [Norvasc] 5 mg PO BID 04/28/16 11/13/17 raNITIdine HCl [Zantac] 150 mg PO QPM 04/28/16 11/13/17 Sodium Bicarbonate 650 mg PO BID 08/19/16 11/13/17 HYDROcodone/Acet 5/325 mg [[place] 1 tab PO Q8H PRN 10/07/16 11/13/17 5-325 mg] Ondansetron ODT [Zofran ODT] 4 mg SL Q8HR PRN 10/07/16 11/13/17 Insulin Glargine [Lantus] 20 unit SQ HS 11/13/17 11/13/17 risperiDONE [Risperidone] 1 mg PO DAILY 11/13/17 11/13/17 risperiDONE [Risperidone] 2 mg PO HS 11/13/17 11/13/17 Previous Rx's Medication Instructions Recorded Polyethylene Glycol 3350 [MiraLAX 1 scoop PO DAILY #510 gm 10/07/16 Powder Bulk 17.9 Oz] Allergies Allergy/AdvReac Type Severity Reaction Status Date / Time methyldopa Allergy See Verified 08/19/16 09:54 Comments acetaminophen [From Tylenol] AdvReac Diarrhea Verified 08/19/16 09:54 propoxyphene AdvReac Diarrhea Verified 08/19/16 09:54 sulfamethoxazole AdvReac Cramping Verified 08/19/16 09:54 [From Bactrim] of the Muscles trimethoprim [From Bactrim] AdvReac Cramping Verified 08/19/16 09:54 of the Muscles All systems ED: reviewed and negative except as stated. Past Medical History - Past Medical History Attestation: Yes The following information was validated with the patient. Source: patient, obtained from family, nursing notes reviewed Medical history: Reports: coronary artery disease, dementia, diabetes, GERD, hyperlipidemia, hypertension, myocardial infarction, renal disease, syncope, TIA , other (Gallstones) Surgical history: Reports: appendectomy, cataract, herniorrhaphy (Umbilical), hysterectomy, knee replacement (Bilateral), other (Hemorrhoidectomy, tonsillectomy, bladder surgery) Psychiatric history: Reports: anxiety - Social History Smoking Status: Never smoker Smokeless Tobacco Status: No Alcohol use: Reports: none Drug use: Reports: none Physical Exam - General Limitations: age (Dementia) General appearance: alert, in no apparent distress - Head Head exam: atraumatic, normocephalic, normal inspection - Eye Eye exam: Present: normal appearance, PERRL, EOMI. Absent: scleral icterus, conjunctival injection - ENT ENT exam: normal exam, normal oropharynx, mucous membranes moist - Neck Neck exam: Present: normal inspection, full ROM, trachea midline. Absent: tenderness, meningismus, lymphadenopathy - Chest Chest inspection: Present: normal inspection, symmetric chest wall rise - Respiratory Respiratory exam: Present: normal lung sounds bilaterally. Absent: respiratory distress, wheezes, prolonged expiratory phase - Cardiovascular Cardiovascular exam: Present: regular rate, normal rhythm, normal heart sounds. Absent: tachycardia, JVD - Abdominal Exam Abdominal exam: Present: soft, Non-Tender, normal bowel sounds. Absent: tenderness, distention, guarding, rebound, rigidity, Ortiz's sign, tenderness at McBurney's Point - Extremities Exam Extremities exam: Present: normal inspection, full ROM, normal capillary refill. Absent: tenderness, pedal edema - Expanded Lower Extremity Exam Neurovascular/Tendon exam: Present: normal capillary refill. Absent: motor deficit, sensory deficit, tendon deficit Gait: other (Slow and with assistance.) - Back Exam Back exam: Present: normal inspection, CVA tenderness (R), CVA tenderness (L). Absent: muscle spasm, straight leg raise (R), straight leg raise (L) - Neurological Exam Neurological exam: Present: alert, CN II-XII intact. Absent: motor sensory deficit - Psychiatric Psychiatric exam: Present: normal affect, normal mood. Absent: agitated, anxious - Skin Skin exam: Present: warm, dry, intact, normal color. Absent: rash, cyanosis, diaphoresis, pallor Course Course Narrative: 180: With return of all testing there is no clear etiology for the patient's failure generalized fatigue. She has chronic renal insufficiency with only slight increase in her creatinine. She is hyperglycemic but not in DKA. There is no evidence for stroke, progressive anemia, acute metabolic derangement, myocardial ischemia/infarction or occult infection/UTI. She has mild elevation of her lactic acid but no evidence for infection, hypotension or tachycardia and sepsis has been ruled out. Given her weakness and near syncopal complaints , I have placed a page to Dr. Lindsey to discuss her inpatient care. He is agreeable with continuing IV fluids, hydration and control of her blood sugars. Verbal orders have been obtained for her observation period Vital Signs Temperature 97.8 F 11/13/17 16:44 Pulse Rate 89 11/13/17 16:44 Respiratory Rate 18 11/13/17 16:44 Blood Pressure 154/74 11/13/17 16:44 O2 Sat by Pulse Oximetry 95 11/13/17 16:44 Temperature 97.8 F 11/13/17 16:44 Pulse Rate 84 11/13/17 17:58 Respiratory Rate 18 11/13/17 17:58 Blood Pressure 163/71 11/13/17 17:58 O2 Sat by Pulse Oximetry 100 11/13/17 17:58 Oxygen Delivery Oxygen Delivery Room Air Weakness - Differential Diagnosis Differential Diagnosis: Likely: dehydration, medication effect, metabolic. Unlikely: acute myocardial infarction, anemia, hypoglycemia, sepsis/infection - Medical Records Medical records reviewed: Yes I reviewed the patient's medical records. - Lab Data Lab results reviewed: Yes I reviewed the patient's lab results. Result diagrams: 11/13/17 17:27 11/13/17 17:27 Lab Results 11/13/17 11/13/17 11/13/17 Range/Units 17:05 17:27 17:27 WBC 5.3 (4.3-11.1) K/mcL RBC 3.72 L (3.82-4.97) M/mcL Hgb 9.9 L (11.5-15.4) g/dL Hct 31.1 L (35.3-44.9) % MCV 83.6 (83.0-100.0) fL MCH 26.6 L (28.0-33.3) pg MCHC 31.8 (31.6-35.5) g/dL RDW 13.0 (11.5-14.5) % Plt Count 202 (140-400) K/mcL MPV 10.2 (9.4-12.4) fL Immature Gran % 0.4 (0-4) % Seg Neutrophils % 53.4 % Lymphocytes % 32.1 % Monocytes % 7.3 % Eosinophils % 6.0 % Basophils % 0.8 % Neutrophils # 2.8 (1.6-8.9) K/mcL Lymphocytes # 1.7 (0.6-4.6) K/mcL Monocytes # 0.4 (0.0-1.3) K/mcL Eosinophils # 0.3 (0.0-0.6) K/mcL Basophils # 0.0 (0.0-0.2) K/mcL Sodium 136 (136-145) mEq/L Potassium 4.9 (3.5-5.1) mEq/L Chloride 102 (98-107) mEq/L Carbon Dioxide 25 (23-29) mEq/L BUN 30 H (8-23) mg/dL Creatinine 2.13 H (0.60-1.20) mg/dL Est GFR ( Amer) 27 L (> 60) Est GFR (Non-Af Amer) 22 L (> 60) BUN/Creatinine Ratio 14 (6-26) Glucose 379 H (70-105) mg/dL Calculated Osmolality 304 H (280-300) Lactic Acid (0.5-2.2) mmol/L Calcium 9.1 (8.6-10.3) mg/dL Total Bilirubin 0.2 L (0.3-1.0) mg/dL Direct Bilirubin 0.0 (0.0-0.2) mg/dL Indirect Bilirubin 0.2 (0.0-1.2) mg/dL AST 15 (13-39) Units/L ALT 10 (7-52) Units/L Alkaline Phosphatase 78 (34-104) Units/L Troponin I < 0.03 (< 0.04) ng/mL Serum Total Protein 6.7 (6.4-8.9) g/dL Albumin 3.7 (3.5-5.7) g/dL Globulin 3.0 (2.4-3.5) g/dL Albumin/Globulin Ratio 1.2 (1.1-2.2) Amylase 73 (29-103) Units/L Lipase 67 (11-82) Units/L Urine Color Light Yellow (Yellow) Urine Clarity Clear (Clear) Urine pH 7.0 (5.0-8.0) pH Units Ur Specific [place] 1.015 (1.010-1.025) Urine Protein 100 H (Neg-Trace) mg/dL Urine Glucose (UA) >=1000 H (Normal) mg/dL Urine Ketones Negative (Negative) mg/dL Urine Blood Trace-lysed H (Negative) Urine Nitrite Negative (Negative) Urine Bilirubin Negative (Negative) Urine Urobilinogen Normal (Normal) mg/dL Ur Leukocyte Esterase Negative (Negative) Urine Microscopic RBC 0-3 (0-3) per hpf Urine Microscopic WBC 0-3 (0-3) per hpf Ur Squamous Epith Cells Few (None-Few) per lpf Urine Bacteria Few (None-Few) per hpf Ur Culture Indicated? NO (NO) 11/13/17 Range/Units 17:27 WBC (4.3-11.1) K/mcL RBC (3.82-4.97) M/mcL Hgb (11.5-15.4) g/dL Hct (35.3-44.9) % MCV (83.0-100.0) fL MCH (28.0-33.3) pg MCHC (31.6-35.5) g/dL RDW (11.5-14.5) % Plt Count (140-400) K/mcL MPV (9.4-12.4) fL Immature Gran % (0-4) % Seg Neutrophils % % Lymphocytes % % Monocytes % % Eosinophils % % Basophils % % Neutrophils # (1.6-8.9) K/mcL Lymphocytes # (0.6-4.6) K/mcL Monocytes # (0.0-1.3) K/mcL Eosinophils # (0.0-0.6) K/mcL Basophils # (0.0-0.2) K/mcL Sodium (136-145) mEq/L Potassium (3.5-5.1) mEq/L Chloride (98-107) mEq/L Carbon Dioxide (23-29) mEq/L BUN (8-23) mg/dL Creatinine (0.60-1.20) mg/dL Est GFR ( Amer) (> 60) Est GFR (Non-Af Amer) (> 60) BUN/Creatinine Ratio (6-26) Glucose (70-105) mg/dL Calculated Osmolality (280-300) Lactic Acid 2.5 H (0.5-2.2) mmol/L Calcium (8.6-10.3) mg/dL Total Bilirubin (0.3-1.0) mg/dL Direct Bilirubin (0.0-0.2) mg/dL Indirect Bilirubin (0.0-1.2) mg/dL AST (13-39) Units/L ALT (7-52) Units/L Alkaline Phosphatase (34-104) Units/L Troponin I (< 0.04) ng/mL Serum Total Protein (6.4-8.9) g/dL Albumin (3.5-5.7) g/dL Globulin (2.4-3.5) g/dL Albumin/Globulin Ratio (1.1-2.2) Amylase (29-103) Units/L Lipase (11-82) Units/L Urine Color (Yellow) Urine Clarity (Clear) Urine pH (5.0-8.0) pH Units Ur Specific [place] (1.010-1.025) Urine Protein (Neg-Trace) mg/dL Urine Glucose (UA) (Normal) mg/dL Urine Ketones (Negative) mg/dL Urine Blood (Negative) Urine Nitrite (Negative) Urine Bilirubin (Negative) Urine Urobilinogen (Normal) mg/dL Ur Leukocyte Esterase (Negative) Urine Microscopic RBC (0-3) per hpf Urine Microscopic WBC (0-3) per hpf Ur Squamous Epith Cells (None-Few) per lpf Urine Bacteria (None-Few) per hpf Ur Culture Indicated? (NO) - Radiology Data Radiology results reviewed: Yes I reviewed the patient's radiology results. CT head is performed. This is reviewed on bone and soft tissue windows. There is no evidence for acute intracranial bleed, shift, mass or edema. Patient has cerebral atrophy that is appropriate for age. Mastoids and sinuses appear normal. There is no fracture evident. This is on my interpretation. CT is performed of the abdomen and pelvis without IV or oral contrast. This demonstrates the basal lungs be free of infiltrate, effusion or mass. Liver, spleen and pancreas appear normal. Gallbladders constricted. Bowels without obstruction, inflammatory change or evidence for perforation. There is no free air or free fluid. Kidneys are without stone or obstruction. The aorta is normal in caliber and calcified. Abdominal wall appears normal. Spine has degenerative changes without evidence for compression, abnormal ossification, spondylolysis/listhesis or spinal stenosis. This is on my interpretation. Impressions Abdomen/Pelvis CT 11/13/17 17:02 IMPRESSION: No acute intra-abdominal abnormality identified. No bowel obstruction. Slight vascular congestion in the mesentery of the right lower quadrant without other significant abnormality. No other significant abnormality. D/ / Andre Burr MD / Andre Burr MD Interpreting Provider: Andre Burr MD Head CT 11/13/17 17:02 IMPRESSION: No acute intracranial abnormality. D/ / Merlin Jim MD / Merlin Jim MD Interpreting Provider: Merlin Jim MD - EKG Data EKG attestation: Yes I reviewed and interpreted this EKG. EKG shows normal: sinus rhythm, axis, intervals, QRS complexes, ST-T waves Rate: normal (83) Interpretation: no acute changes, nonspecific ST-T wave changes
[2017-11-13] MEDS ORDERED: Ondansetron 4 MG/2 ML VIAL IVP ONE (17:02)
[2017-11-13] MEDS ORDERED: 0.9 % Sodium Chloride 1,000 ML IVC SCH ×2 (17:15→19:41)
[2017-11-13 17:41] LABS: Bilirubin,Urine Negative (Negative); Blood,Urine Trace-lysed (Negative); Clarity,Urine Clear (Clear); Glucose,Urine (UA) >=1000 mg/dL (Normal); Ketones,Urine Negative (Negative); Leukocyte Esterase,Urine Negative (Negative); Nitrite,Urine Negative (Negative); Protein,Urine 100 mg/dL (Neg-Trace); Specific Gravity,Urine 1.015 (1.010-1.025); Urobilinogen,Urine Normal (Normal)
[2017-11-13 17:44] LABS: Color,Urine Light Yellow (Yellow)
[2017-11-13 17:49] LABS: Basophils % 0.8 %; Eosinophils # 0.3 K/mcL (0.0-0.6); Hematocrit 31.1 % (35.3-44.9); Hemoglobin 9.9 g/dL (11.5-15.4); Immature Granulocytes % 0.4 % (0-4); Lymphocytes # 1.7 K/mcL (0.6-4.6); Lymphocytes % 32.1 %; Mean Corpuscular HGB Conc 31.8 g/dL (31.6-35.5); Mean Corpuscular Hemoglobin 26.6 pg (28.0-33.3); Mean Corpuscular Volume 83.6 fL (83.0-100.0); Mean Platelet Volume 10.2 fL (9.4-12.4); Monocytes # 0.4 K/mcL (0.0-1.3); Monocytes % 7.3 %; Neutrophils # 2.8 K/mcL (1.6-8.9); Platelet Count 202 K/mcL (140-400); Red Blood Count 3.72 M/mcL (3.82-4.97); Segmented Neutrophils % 53.4 %
[2017-11-13 17:51] LABS: Bacteria,Urine Few per hpf (None-Few); RBC,Urine 0-3 per hpf (0-3); Squamous Epithelial Cell,Urine Few per lpf (None-Few); WBC,Urine 0-3 per hpf (0-3)
[2017-11-13 17:58] LABS: Alanine Aminotransferase 10 Units/L (7-52); Albumin 3.7 g/dL (3.5-5.7); Albumin/Globulin Ratio 1.2 (1.1-2.2); Alkaline Phosphatase 78 Units/L (34-104); Amylase 73 Units/L (29-103); Aspartate Amino Transferase 15 Units/L (13-39); BUN/Creatinine Ratio 14 (6-26); Bilirubin,Indirect 0.2 mg/dL (0.0-1.2); Bilirubin,Total 0.2 mg/dL (0.3-1.0); Blood Urea Nitrogen 30 mg/dL (8-23); Calcium 9.1 mg/dL (8.6-10.3); Carbon Dioxide 25 mEq/L (23-29); Chloride 102 mEq/L (98-107); Glucose 379 mg/dL (70-105); Lipase 67 Units/L (11-82); Osmolality,Calculated 304 (280-300); Potassium 4.9 mEq/L (3.5-5.1); Sodium 136 mEq/L (136-145); Total Protein 6.7 g/dL (6.4-8.9); eGFR For Non-African Americans 22 (> 60)
[2017-11-13] MEDS ORDERED: Insulin Regular, Human 100 UNIT/ML SQ ONE (17:59)
[2017-11-13 18:03] LABS: Troponin I < 0.03 ng/mL (< 0.04)
[2017-11-13] MEDS ORDERED: Naloxone 0.4 MG/ML INJ IVP PRN (19:41)
[2017-11-13] MEDS ORDERED: *HR* Dextrose 50 % in Water (Syg) 50 ML SYRINGE IVP PRN (19:41)
[2017-11-13] MEDS ORDERED: Dextrose Gel 15 GM/37.5 ML TUBE PO PRN ×2 (19:41)
[2017-11-13] MEDS ORDERED: *HR* HYDROcodone/Acet 5/325 mg TABLET PO PRN (19:41)
[2017-11-13] MEDS ORDERED: D5% in Water 1,000 ML IVC PRN (19:41)
[2017-11-13] MEDS ORDERED: Ondansetron ODT 4 MG TAB.RAPDIS SL PRN (19:41)
[2017-11-13] MEDS: risperiDONE 1 MG TABLET PO SCH (20:53)
[2017-11-13] MEDS: amLODIPine 5 MG TABLET PO SCH (20:54)
[2017-11-13] MEDS ORDERED: Insulin DETEMIR 100 UNIT/ML per UNIT SQ ONE (21:00)
[2017-11-14 06:54] LABS: Potassium 4.5 mEq/L (3.5-5.1)
[2017-11-14] MEDS: amLODIPine 5 MG TABLET PO SCH ×2 (08:20→19:57)
[2017-11-14] MEDS: risperiDONE 1 MG TABLET PO SCH ×2 (08:21→19:57)
[2017-11-14] MEDS: Aspirin Enteric Coated 81 MG Tablet PO SCH (08:22)
[2017-11-14] MEDS: Insulin LISPRO 300 UNITS/3 ML VIAL SQ SCH ×3 (08:25→16:40)
--- NOTE | 2017-11-14 10:48 | Internal Med History&Physical ---
Date of Encounter: 11/14/17 Time of Encounter: 10:10 Assessment and Plan (1) Acute on chronic renal failure Current visit: Yes Status: Acute IV fluids have been ordered. Renal indices will be monitored. Qualifiers: Acute renal failure type: unspecified Chronic kidney disease stage: stage 4 (severe) Qualified Code(s): N17.9 - Acute kidney failure, unspecified; N18.4 - Chronic kidney disease, stage 4 (severe) (2) Anemia Current visit: Yes Status: Chronic Likely due to chronic kidney disease. Order anemia testing in a.m. Qualifiers: Anemia type: due to chronic kidney disease Chronic kidney disease stage: stage 4 (severe) Qualified Code(s): N18.4 - Chronic kidney disease, stage 4 ( severe); D63.1 - Anemia in chronic kidney disease (3) DM type 2 (diabetes mellitus, type 2) Current visit: No Status: Chronic Continue Levemir and do Accu-Cheks with SSI. Check hemoglobin A1c in a.m. 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 Middleton is a 82 year old female who was brought to emergency room by family for increased weakness with episodes of vomiting at home. Patient complained of pain in her low back area but this is chronic per available records. She was evaluated in the emergency room and found to have acute on chronic renal failure, anemia, and hyperglycemia. She was admitted to [facility] floor for ongoing care needs. She has dementia and cannot give additional reliable history at this time. Past Med Surg Social Fam HX - Past Medical History Medical history: coronary artery disease, dementia, diabetes, GERD, hyperlipidemia, hypertension, myocardial infarction, renal disease, syncope, TIA , other (Gallstones) Additional medical history: rhynaulds Psychiatric history: anxiety - Past Surgical History Surgical History: appendectomy, cataract, herniorrhaphy (Umbilical), hysterectomy, knee replacement (Bilateral), other (Hemorrhoidectomy, tonsillectomy, bladder surgery) Additional surgical history: hemorrhoidectomy,. bladder suspension - Social History Smoking Status: Never smoker Smokeless Tobacco Status: No Alcohol use: none Drug use: none - Family History Mother Living Status: Hx Family Cardiac Disorders: Yes Hx Family Cancer: Yes Hx Family Endocrine Disorder: Yes (diabetes) Internal Medicine - H&P: Meds Aspirin [Lo-Dose Aspirin EC] 81 mg PO DAILY 04/28/16 [History] Donepezil [Aricept] 10 mg PO HS 04/28/16 [History] Labetalol HCl 100 mg PO BID 04/28/16 [History] amLODIPine [Norvasc] 5 mg PO BID 04/28/16 [History] raNITIdine HCl [Zantac] 150 mg PO QPM 04/28/16 [History] Sodium Bicarbonate 650 mg PO BID 08/19/16 [History] HYDROcodone/Acet 5/325 mg [[place] 5-325 mg] 1 tab PO Q8H PRN 10/07/16 [History] Ondansetron ODT [Zofran ODT] 4 mg SL Q8HR PRN 10/07/16 [History] Polyethylene Glycol 3350 [MiraLAX Powder Bulk 17.9 Oz] 1 scoop PO DAILY #510 gm 10/07/16 [Rx] Insulin Glargine [Lantus] 20 unit SQ HS 11/13/17 [History] risperiDONE [Risperidone] 1 mg PO DAILY 11/13/17 [History] risperiDONE [Risperidone] 2 mg PO HS 11/13/17 [History] 3 Allergy/AdvReac Type Severity Reaction Status Date / Time methyldopa Allergy See Verified 08/19/16 09:54 Comments acetaminophen [From Tylenol] AdvReac Diarrhea Verified 08/19/16 09:54 propoxyphene AdvReac Diarrhea Verified 08/19/16 09:54 sulfamethoxazole AdvReac Cramping Verified 08/19/16 09:54 [From Bactrim] of the Muscles trimethoprim [From Bactrim] AdvReac Cramping Verified 08/19/16 09:54 of the Muscles All Systems PM: A 10-system review of systems was performed and is negative for pertinent findings except as documented above in the HPI. Review of systems: Review of systems from her April 2016 [facility] hospitalization were reviewed and revised as below. Gen.: Her weight has decreased from 93.2 kg 05/01/2016 to weight of 86.353 kg today. She reported April 2016 she had lost 35 pounds unintentionally. Cardiovascular: She has history of hypertension. She denies heart failure angina DVT or pulmonary embolus. She does get dyspneic on exertion but does not have chest pain on exertion. She does not have a sensation of cardiac ectopy. She was told she might have had a mild heart attack approximately 2012 but no heart catheter or stress test has been done Respiratory: She is a lifelong nonsmoker and has no known chronic lung disease GI: She denies disorders of her liver gallbladder or exocrine pancreas. She has occasional constipation : She has chronic kidney disease stage IV and follows with a [place] director surface transportation. She denies other kidney or bladder disorders. Neurologic: She has not had large distribution strokes or seizures. She has a diagnosis of dementia. Endocrine: She was diagnosed with DM 2 more than 10 years ago. Hemoglobin A1c was 6.4% on 05/23/2017. She has history of hyperlipidemia with lipid profile done 11/30/2013 showing cholesterol 243, triglycerides 185, HDL 46, and total/ HDL ratio 5.3. She denies known thyroid disease. Hematologic/oncology: She denies blood disorders cancers or anemia. She has frequently had microcytosis documented. Psychiatric: She has anxiety but no significant depression or other mental health issues Musculoskeletal: She had a lipoma removed from her left leg approximately 2012. She has been diagnosed with Raynaud's disease. She claims she has arthritis pains in her hands. She has chronic low back pain. - Constitutional Vitals: Temp Pulse Resp BP Pulse Ox 98.1 F 63 17 158/74 100 11/14/17 07:28 11/14/17 07:28 11/14/17 07:28 11/14/17 07:28 11/14/17 07:28 Exam: Gen.: She is well-developed well-nourished female lying in bed who appears in no acute distress at present time HEENT: Head is atraumatic and normocephalic. Eyes: EOMI. There is no scleral icterus. Mouth: Mucosa is moist. Neck: Supple and nontender. There is no thyromegaly or adenopathy noted. Heart: Regular with a 2-3/6 systolic murmur heard at the left sternal border. S1 and S2 are soft. No ectopics are heard. Lungs: No wheezes or crackles are heard. Abdomen: Soft and nontender. No masses or guarding are noted. Extremities: There is no cyanosis edema or clubbing noted. Dorsalis pedis and posterior tibial pulses are trace palpable bilaterally. Neurologic: Mental status: She is talkative and is a very poor historian. Cranial nerves: Smile is symmetric. Forehead wrinkles bilaterally. Tongue protrudes midline. EOMI. Motor: There is no pronator drift. Cerebellar: Finger to nose is intact bilaterally. Skin: Warm and dry Internal Med - H&P Results - Labs CBC & Chem 7: 11/13/17 17:27 11/14/17 05:25 Labs: BMP 11/14/17 05:25 Sodium 143 Potassium 4.5 Chloride 108 H Carbon Dioxide 25 BUN 27 H Creatinine 1.90 H Glucose 120 H Calcium 9.0
[2017-11-14] MEDS ORDERED: Ondansetron ODT 4 MG TAB.RAPDIS SL PRN (14:34)
[2017-11-14] MEDS ORDERED: Insulin DETEMIR 100 UNIT/ML X5UNITS SQ SCH (21:00)
[2017-11-14] MEDS ORDERED: Famotidine 20 MG TABLET PO SCH (21:00)
[2017-11-15] MEDS: Insulin LISPRO 300 UNITS/3 ML VIAL SQ SCH ×2 (07:49→12:44)
[2017-11-15] MEDS: Aspirin Enteric Coated 81 MG Tablet PO SCH (08:35)
[2017-11-15] MEDS: amLODIPine 5 MG TABLET PO SCH (08:35)
[2017-11-15] MEDS: risperiDONE 1 MG TABLET PO SCH (08:36)
[2017-11-15 08:37] LABS: Basophils # 0.1 K/mcL (0.0-0.2); Basophils % 1.1 %; Eosinophils # 0.3 K/mcL (0.0-0.6); Eosinophils % 7.4 %; Hematocrit 37.1 % (35.3-44.9); Hemoglobin 11.9 g/dL (11.5-15.4); Immature Granulocytes % 0.2 % (0-4); Lymphocytes # 1.6 K/mcL (0.6-4.6); Lymphocytes % 35.4 %; Mean Corpuscular HGB Conc 32.1 g/dL (31.6-35.5); Mean Corpuscular Volume 84.1 fL (83.0-100.0); Mean Platelet Volume 10.6 fL (9.4-12.4); Monocytes # 0.4 K/mcL (0.0-1.3); Monocytes % 8.1 %; Neutrophils # 2.1 K/mcL (1.6-8.9); Platelet Count 149 K/mcL (140-400); Red Blood Count 4.41 M/mcL (3.82-4.97); Red Cell Distribution Width 13.2 % (11.5-14.5); Segmented Neutrophils % 47.8 %
[2017-11-15 09:29] LABS: Thyroid Stimulating Hormone 0.705 mcIU/mL (0.340-5.600)
[2017-11-15 11:01] LABS: Platelet Estimate Normal (Normal)
[2017-11-15 11:12] VITALS: BP 183/76
[2017-11-15 11:12] LABS: Potassium 4.5 mEq/L (3.5-5.1)
[2017-11-15 11:13] LABS: Calcium 9.3 mg/dL (8.6-10.3)
[2017-11-15 14:15] LABS: Folate 10.5 ng/mL (3.0-16.0)
[2017-11-15 14:17] LABS: Estimated Average Glucose 169 mg/dl; Hemoglobin A1C 7.5 %
--- NOTE | 2017-11-15 14:28 | Discharge Summary ---
Orders not resulted at time of discharge: Pending orders 11/15/17 08:25 Hgb A1C AM 0400 Date of Encounter: 11/15/17 Time of Encounter: 14:15 - Discharge Diagnosis (1) Acute on chronic renal failure Priority: Primary Status: Acute Qualifiers: Acute renal failure type: unspecified Chronic kidney disease stage: stage 4 (severe) Qualified Code(s): N17.9 - Acute kidney failure, unspecified; N18.4 - Chronic kidney disease, stage 4 (severe) (2) Anemia Priority: Secondary Status: Chronic Qualifiers: Anemia type: due to chronic kidney disease Chronic kidney disease stage: stage 4 (severe) Qualified Code(s): N18.4 - Chronic kidney disease, stage 4 ( severe); D63.1 - Anemia in chronic kidney disease (3) DM type 2 (diabetes mellitus, type 2) Priority: Secondary Status: Chronic Qualifiers: 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 Middleton is a 82 year old female who was brought to emergency room by family for increased weakness with episodes of vomiting at home. Patient complained of pain in her low back area but this is chronic per available records. She was evaluated in the emergency room and found to have acute on chronic renal failure, anemia, and hyperglycemia. She was admitted to [facility] floor for ongoing care needs. Initial orders were written by the emergency room physician. I saw her on November 14 and performed a history and physical. She was given IV fluids. BUN and creatinine improved to 25 and 1.73 respectively by day of discharge with estimated GFR 28. Her PCP can monitor renal indices. Anemia testing was ordered to further evaluate hemoglobin of 9.9 on admission. Anemia testing showed iron 84, transferrin saturation 26%, transferrin 234, ferritin 38, and folate 10.5. B12 level is pending at time of discharge. Hemoglobin had normalized to 11.9 on day of discharge leading to questionable accuracy of either the admission hemoglobin or follow-up level. TSH was normal at 0.705. When I saw her on November 15 she states she had some "upset stomach" but had not vomited. She felt she was stable for discharge home. She will follow with her PCP within 1 week. - Time Spent with Patient Total time spent providing and/or coordinating discharge services: - Discharge Medications Home Medications: Aspirin [Lo-Dose Aspirin EC] 81 mg PO DAILY 04/28/16 [History] Donepezil [Aricept] 10 mg PO HS 04/28/16 [History] Labetalol HCl 100 mg PO BID 04/28/16 [History] amLODIPine [Norvasc] 5 mg PO BID 04/28/16 [History] raNITIdine HCl [Zantac] 150 mg PO QPM 04/28/16 [History] Sodium Bicarbonate 650 mg PO BID 08/19/16 [History] HYDROcodone/Acet 5/325 mg [[place] 5-325 mg] 1 tab PO Q8H PRN 10/07/16 [History] Ondansetron ODT [Zofran ODT] 4 mg SL Q8HR PRN 10/07/16 [History] Polyethylene Glycol 3350 [MiraLAX Powder Bulk 17.9 Oz] 1 scoop PO DAILY #510 gm 10/07/16 [Rx] Insulin Glargine [Lantus] 20 unit SQ HS 11/13/17 [History] risperiDONE [Risperidone] 1 mg PO DAILY 11/13/17 [History] risperiDONE [Risperidone] 2 mg PO HS 11/13/17 [History] Allergies/Adverse Reactions: 3 Allergy/AdvReac Type Severity Reaction Status Date / Time methyldopa Allergy See Verified 08/19/16 09:54 Comments acetaminophen [From Tylenol] AdvReac Diarrhea Verified 08/19/16 09:54 propoxyphene AdvReac Diarrhea Verified 08/19/16 09:54 sulfamethoxazole AdvReac Cramping Verified 08/19/16 09:54 [From Bactrim] of the Muscles trimethoprim [From Bactrim] AdvReac Cramping Verified 08/19/16 09:54 of the Muscles Date of admission: 11/13/17 18:30 Primary care physician: Cindi Geronimo - Constitutional Vitals: Temp Pulse Resp BP Pulse Ox 98.4 F 70 16 183/76 100 11/15/17 11:05 11/15/17 11:05 11/15/17 11:05 11/15/17 11:05 11/15/17 11:05 - Patient Status Disposition: Home, Self-Care Condition: Fair - Discharge Instructions Follow Up With: Cindi Geronimo MD [Primary Care Provider] - 1 week - Diet and Activity Activity: resume usual activities as tolerated Diet: advance to your usual diet
--- NOTE | 2017-11-17 17:45 | Electrocardiograph Report ---
[place] [id number] Test Date: 2017-11-13 Pat Name: Sabiha Middleton Department: [id number] Room: [facility] Gender: F [employer]: [id number] : 1935 Requested By: Ganga Pat Order Number: [id number] Reading MD: Ning Wakefield Measurements Intervals [place] Rate: 83 P: 38 NH: 142 QRS: 9 QRSD: 77 T: 71 QT: 388 QTc: 428 Interpretive Statements SINUS RHYTHM NONSPECIFIC T-WAVE ABNORMALITY Electronically Signed On 11-17-2017 17:44:08 EDT by Ning Wakefield
== END 2017-11-15 14:50 | disposition home or self-care (01) ==
LOC: EMEROOPIK 16:40 → INPPIK 16:40
PROVIDERS: ADMIT Internal Medicine; ATTEND Internal Medicine